=== PATIENT | female | born 1970 | race Caucasian/White ===

== ENCOUNTER 2024-01-27 09:26 | Outpatient (AMB) | payer BC, SELFPAY ==
--- NOTE | 2024-01-27 09:35 | HO.NEPHOV_ITS ---
Vital Signs 01/27/24 09:38 Height 5 ft 6 in Weight 152 lb 8 oz BMI 24.6 BP 102/66 Blood Pressure Location Lt brachial Position Sitting Pulse 70 Pulse Source Pulse Oximeter Pulse Oximetry (%) 96 Oxygen Delivery Method Room Air Intake Visit Reasons: Follow up/ Conf Animal Caretaker Required: No Accompanied by: Self / Same As Patient Allergies codeine Allergy (Verified 01/27/24 09:30) Unknown HPI Comments Details: I had the privilege of seeing Sushma in follow-up for her renal artery stenosis. When she had imaging of the abdomen in the past by ultrasound, she was thought to have renal artery stenosis. She underwent CT angiogram which showed likely fibromuscular dysplasia. She has no hypertension. She is not on any antihypertensive medications. She has history of her dyslipidemia. Her renal functions have been normal. She has no history of hypokalemia, peripheral arterial disease, carotid stenosis, CVA, CAD, CHF. She recently had right breast cancer and had lumpectomy and radiation. She recently had a fall and had a Colles fracture on her right hand. She feels well. [facility] Medical History (Updated 01/27/24 @ 09:39 by Karlos Seals MD) Hyperlipidemia Surgical History (Updated 01/27/24 @ 09:45 by Michelle Lake MA) History of lumpectomy H/O wisdom tooth extraction Hx of tonsillectomy History of knee surgery History of dilation and curettage Family History (Updated 01/23/24 @ 09:27 by Michelle Lake MA) Mother Hypertension Cancer Father Hypertension Cancer Maternal Aunt Cancer Maternal Grandfather Heart disease Social History Alcohol intake: never Patient Tobacco Use Status: Never used Tobacco Physical Exam Const General: comfortable and no acute distress Orientation/consciousness: patient oriented x3 HEENT Head: Yes normocephalic Mouth: Normal oral and palatal mucosa present Eyes EOM: EOMs intact bilaterally Neck Neck: Yes supple Resp Auscultation: clear to auscultation bilaterally Cardio Jugular venous distension: no JVD Rate: regular rate GI Palpation (GI): Soft to palpation Auscultation: normal bowel sounds General: Yes no CVA tenderness Back/Spine/Pelvis Back: no CVA tenderness Skin General skin exam: no rashes or lesions noted Neuro General: patient oriented x3 and moves all extremities Extrem General: Yes no pedal edema Results Reviewed Nephrology Results: No Data to Display Assessment & Plan Assessment & Plan (1) Fibromuscular dysplasia: Code(s): I77.3 - Arterial fibromuscular dysplasia Category: Medical (2) Hyperlipidemia: Code(s): E78.5 - Hyperlipidemia, unspecified Category: Medical Qualifiers: Hyperlipidemia type: unspecified Qualified Code(s): E78.5 - Hyperlipidemia, unspecified Plan Sushma had an incidental finding of fibromuscular dysplasia by CT angiography after she had an incidental pickup of questionable renal artery stenosis by ultrasound. Her blood pressure had always been well controlled. She does not take excessive nonsteroidal anti-inflammatories and maintain good hydration. She has no orthostatic hypotension or hypokalemia. Her renal functions have been stable. I did not make any medication changes today. I encouraged her to monitor blood pressure at home. I have ordered follow-up Doppler ultrasound of her renal arteries after next visit. She needs follow-up of her lipid profile, which I ordered . All questions answered. Follow-up appointment given. Orders: Orders Creatinine 1 Year E78.5 - Hyperlipidemia, unspecified, I77.3 - Arterial fibromuscular dysplasia Blood Urea Nitrogen Today E78.5 - Hyperlipidemia, unspecified, I77.3 - Arterial fibromuscular dysplasia Electrolytes Today E78.5 - Hyperlipidemia, unspecified, I77.3 - Arterial fibromuscular dysplasia Calcium Today E78.5 - Hyperlipidemia, unspecified, I77.3 - Arterial fibromuscular dysplasia Lipid Panel Today E78.5 - Hyperlipidemia, unspecified, I77.3 - Arterial fibromuscular dysplasia Coding Level of Care Code Est Pt Level 4 (37741) Diagnoses Fibromuscular dysplasia I77.3 Hyperlipidemia, unspecified hyperlipidemia type E78.5 Hyperlipidemia type: unspecified
[2024-01-27 09:38] VITALS: BP 102/66; PULSE 70; O2SAT 96; BMI 24.6
== END 2024-01-27 10:08 | disposition home or self-care (01) ==
PROVIDERS: PCP Internal Medicine; Visit Provider Internal Medicine Nephrology
DX: I77.3 Arterial fibromuscular dysplasia (principal); E78.5 Hyperlipidemia, unspecified
CPT/HCPCS: 99214

== ENCOUNTER → 2024-01-27 09:26 | Outpatient (BNVA) | payer BC, SELFPAY | PROVIDERS: PCP Internal Medicine; Visit Provider Internal Medicine Nephrology ==

== ENCOUNTER 2025-01-24 08:27 | Outpatient (REF) | payer BC, SELFPAY ==
--- OUTSIDE RECORDS SUMMARY | 2025-01-24 08:40 | XMS_ITS | Clinical Summary ---
Author Organization [facility] Address [address] [facility] [address] [place] [address] Phone Care Team Providers Care Powder Coat Painter Name Role Phone Jenniffer Gómez Primary Care Provider [phone] Allergies Active Allergy Reactions Criticality Noted Date Comments Codeine 01/13/2023 Other reaction(s): n/v Medications Multiple Vitamin (multivitamin) tablet Take 1 tablet by mouth 1 (one) time each day Active Turmeric 500 MG tablet Take 1 tablet by mouth 1 (one) time each day Active cholecalciferol (VITAMIN D-3) 25 MCG (1000 UT) capsule Take 1,000 Units by mouth 1 (one) time each day Active cetirizine (ZyrTEC) 10 MG tablet Take 10 mg by mouth if needed for allergies Active Active Problems Problem Noted Date Diagnosed Date Abnormal findings on diagnostic imaging of breas t 02/10/2023 02/27/2023 Renal artery stenosis 01/13/2023 Resolved Problems Problem Noted Date Diagnosed Date Resolved Date Hyperlipidemia 01/13/2023 01/13/2023 Urinary incontinence 01/13/2023 023 Well adult 01/13/2023 01/13/2023 Immunizations Immunization Administration Dates Next Due DTaP 09/07/2011 Influenza Whole 04/28/2020,05/29/2012,04/24/2011 ,04/29/2010 Pfizer SARS-COV-2 05/14/2021,11/02/2020,10/12/19 21 Shingrix 09/24/2021,06/23/2021 Tdap 09/07/2011 Family History Medical History Relation Comments Cancer Father Hypertension Father Heart disease Maternal Grandfather Cancer Mother Hypertension Mother Cancer Mother's Sister Cancer Paternal Grandfather Diabetes Paternal Grandfather Cancer Paternal Grandmother Relation Status Comments Father Alive Maternal Grandfather Mother Alive Mother's Sister Paternal Grandfather Paternal Grandmother Social History Tobacco Use Types Packs/Day Years Used Date Smoking Tobacco: Never Smokeless Tobacco: Never Tobacco Cessation:Counseling Given: Not Answered Alcohol Use Standard Drinks/Week Comments Yes 0 (1 standard drink = 0.6 oz pur e alcohol) once a year Comments Unknown Sex and Gender Information Value Date Recorded Sex Assigned at Female 02/21/2023 8:59 AM EDT Legal Sex Female 1:01 PM EDT Gender Identity Female 02/21/2023 8:59 AM EDT Sexual Orientation Not on file Last Filed Vital Signs Vital Sign Reading Time Taken Comments Blood Pressure 110/70 02/28/2023 12:27 PM EDT Pulse 60 02/28/2023 12:27 PM EDT Temperature - - Respiratory Rate - - Oxygen Saturation - - Inhaled Oxygen Concentration - - Weight 70.5 kg (155 lb 6.4 oz) 02/28/2023 12:27 PM EDT Height - - Body Mass Index - - Plan of Treatment Health Maintenance Due Date Last Done Comments Breast Cancer Screening 1970 Hepatitis B Vaccine (1 of 3 - 19+ 3-dose series) 1989 Pneumococcal Vaccine: 50+ Ye ars (1 of 2 - PCV) 1989 Colorectal Cancer Screening: Annual FOBT 2019 Colorectal Cancer Screening: Colonoscopy 2019 Colorectal Cancer Screening: Sigmoidoscopy 2019 Influenza Vaccine (Season Ended) 2025 04/28/2020, 05/29/2012, 04/24/2011, Additional history exists Insurance [facility] Care Teams Powder Coat Painter Relationship Specialty Start Date End Date Jenniffer Gómez PA [address] [place] [address] PCP - General Physician Buyer Agent 11/20/22
[2025-01-24 17:46] LABS: Anion Gap 12 (12-20); Blood Urea Nitrogen 21 mg/dL (9-16); Calcium 9.4 mg/dL (8.4-10.2); Carbon Dioxide 28 mmol/L (22-29); Chloride 104 mmol/L (96-108); Cholesterol 223 mg/dL (<200); HDL Cholesterol 45 mg/dL (>40); LDL Cholesterol Calculated 117 mg/dL (<100); Potassium 4.2 mmol/L (3.3-5.1); Sodium 140 mmol/L (135-145); Triglycerides 306 mg/dL (<150)
[2025-01-24 17:54] LABS: Estimated Glomerular Filt Rate > 60
== END 2025-01-24 08:28 | disposition home or self-care (01) ==
LOC: HO.HKASLDS 08:27
PROVIDERS: Visit Provider Internal Medicine Nephrology
DX: I77.3 Arterial fibromuscular dysplasia (principal); E78.5 Hyperlipidemia, unspecified
CPT/HCPCS: 36415; 80051; 80061; 82310; 82565; 84520

== ENCOUNTER 2025-01-25 09:19 | Outpatient (AMB) | payer BC, SELFPAY ==
--- NOTE | 2025-01-25 09:21 | HO.NEPHOV ---
Vital Signs 01/25/25 09:22 Height 5 ft 6 in Weight 164 lb 4 oz BMI 26.5 BP 100/60 Blood Pressure Location Rt brachial Position Sitting Pulse 73 Pulse Source Pulse Oximeter Pulse Oximetry (%) 95 Oxygen Delivery Method Room Air Intake Visit Reasons: 1 yr follow up-Conf Intake Note: Patient here for follow-up, last week had a episode of vertigo. Rotary Cutter Operator Required: No Accompanied by: Self / Same As Patient Allergies codeine Allergy (Verified 01/27/24 09:30) Unknown Do you need a note to return to daycare/school/sports/work: No HPI Comments Details: Sushma was seen in follow-up for her renal artery stenosis. When she had imaging of the abdomen in the past by ultrasound, she was thought to have renal artery stenosis. She underwent CT angiogram which showed likely fibromuscular dysplasia. She has no hypertension. She is not on any antihypertensive medications. She has history of her dyslipidemia. Her renal functions have been normal. She has no history of hypokalemia, peripheral arterial disease, carotid stenosis, CVA, CAD, CHF. She has had right breast cancer and had lumpectomy and radiation. She feels well. [facility] Medical History Hyperlipidemia Surgical History History of lumpectomy H/O wisdom tooth extraction Hx of tonsillectomy History of knee surgery History of dilation and curettage Family History Mother Hypertension Cancer Father Hypertension Cancer Maternal Aunt Cancer Maternal Grandfather Heart disease Social History Alcohol intake: never Patient Tobacco Use Status: Never used Tobacco Review of Systems Const All systems reviewed & are unremarkable except as noted in HPI and below Physical Exam Vital Signs: BMI result Body Mass Index 26.5 Const General: comfortable and no acute distress Orientation/consciousness: patient oriented x3 HEENT Head: Yes normocephalic Mouth: Normal oral and palatal mucosa present Eyes EOM: EOMs intact bilaterally Neck Neck: Yes supple Resp Auscultation: clear to auscultation bilaterally Cardio Jugular venous distension: no JVD Rate: regular rate GI Palpation (GI): Soft to palpation Auscultation: normal bowel sounds General: Yes no CVA tenderness Back/Spine/Pelvis Back: no CVA tenderness Skin General skin exam: no rashes or lesions noted Neuro General: patient oriented x3 and moves all extremities Extrem General: Yes no pedal edema Results Reviewed Nephrology Results: Sodium, (135-145) 140 mmol/L 01/24/25 Potassium, (3.3-5.1) 4.2 mmol/L 01/24/25 Chloride, (96-108) 104 mmol/L 01/24/25 Carbon Dioxide, (22-29) 28 mmol/L 01/24/25 BUN, (9-16) 21 mg/dL H 01/24/25 Creatinine, (0.5-1.4) 0.93 mg/dL 01/24/25 Calcium, (8.4-10.2) 9.4 mg/dL 01/24/25 Assessment & Plan Assessment & Plan (1) Fibromuscular dysplasia: Code(s): I77.3 - Arterial fibromuscular dysplasia Category: Medical Plan Sushma had an incidental finding of fibromuscular dysplasia by CT angiography after she had an incidental pickup of questionable renal artery stenosis by ultrasound. Her blood pressure had always been well controlled. She does not take excessive nonsteroid anti inflammatories and maintain good hydration. She has no orthostatic hypotension or hypokalemia. Her renal functions have been stable. I did not make any medication changes today. I encouraged her to monitor blood pressure at home. I shall order follow-up Doppler ultrasound of her renal arteries for F/U @ next visit . Her last lipid profile was reviewed . Her lipid profile needs to be repeated later this year and may need initiation of medications.All questions answered. Follow-up appointment given. Orders: Orders Creatinine Today I77.3 - Arterial fibromuscular dysplasia Electrolytes Today I77.3 - Arterial fibromuscular dysplasia Lipid Panel 1 Year I77.3 - Arterial fibromuscular dysplasia Blood Urea Nitrogen Today I77.3 - Arterial fibromuscular dysplasia Protein Creatinine Ratio, Ur Today I77.3 - Arterial fibromuscular dysplasia Coding Level of Care Code Est Pt Level 4 (02831) Diagnoses Fibromuscular dysplasia I77.3
[2025-01-25 09:22] VITALS: BP 100/60; PULSE 73; O2SAT 95; BMI 26.5
--- OUTSIDE RECORDS SUMMARY | 2025-01-25 09:57 | XMS_ITS | Clinical Summary ---
Author Organization [facility] Address [address] [facility] [address] [place] [address] Phone Care Team Providers Care Terra Cotta Mason Name Role Phone Jenniffer Gómez Primary Care Provider [phone] Allergies Active Allergy Reactions Criticality Noted Date [...] [facility] Care Teams Terra Cotta Mason Relationship Specialty Start Date End Date Jenniffer Gómez PA [address] [place] [address] PCP - General Physician Platinum And Palladium Kettle Tender 11/20/22
== END 2025-01-25 09:49 | disposition home or self-care (01) ==
LOC: HO.HKAS 09:20
PROVIDERS: PCP Internal Medicine; Visit Provider Internal Medicine Nephrology
DX: I77.3 Arterial fibromuscular dysplasia (principal)
CPT/HCPCS: 99214